=== PATIENT | female | born 1955 | race Caucasian/White ===

== ENCOUNTER 2023-06-30 09:52 | Observation (INO) | payer MEDICARE, BC ==
[2023-06-30 11:14] LABS: #Eosinphils 0.2 thou/uL (0.0-0.7); #Monocytes 0.2 thou/uL (0.11-0.59); #Neutrophils 4.6 thou/uL (1.40-6.50); %Basophils 0.6 % (0.0-1.0); %Eosinophils 2.4 % (0.0-10.0); %Lymphocytes 18.8 % (21.0-51.0); %Monocytes 3.1 % (0.0-10.0); %Neutrophils 74.6 % (42.0-75.0); Hematocrit 36.6 % (36.0-47.0); Hemoglobin 11.8 g/dL (12.0-16.0); Mean Corpuscular HGB CONC 32.2 g/dL (32.0-36.0); Mean Corpuscular Hemoglobin 27.1 pg (27.0-31.0); Mean Corpuscular Volume 83.9 fl (78.0-98.0); Mean Platelet Volume 11.1 fL (7.4-10.4); Platelet Count 300 10x3/uL (130-400); RBC Distribution Width 15.4 % (11.5-14.5); Red Blood Cell (RBC) Count 4.36 mill/uL (4.20-5.40); White Blood Cell (WBC) Count 6.2 10x3/uL (4.8-10.8)
[2023-06-30 11:36] LABS: ALT (SGPT) 34 U/L (8-55); AST (SGOT) 24 U/L (5-34); Albumin 3.8 g/dL (3.4-4.8); Alkaline Phosphatase 47 U/L (40-110); Anion Gap 14 mmol/L (10-20); BUN (Urea Nitrogen) 26 mg/dL (9.8-20.1); Bilirubin, Total 0.5 mg/dL (0.2-1.2); Calc. Creatinine Clearance 0 mL/min (70-130); Calcium 8.5 mg/dL (7.8-10.44); Carbon Dioxide 23 mmol/L (23-31); Chloride 107 mmol/L (98-107); Estimated GFR 55; Glucose 98 mg/dL (80-115); Protein, Total 5.8 g/dL (5.8-8.1); Sodium 141 mmol/L (136-145)
[2023-06-30] MEDS ORDERED: Potassium Chloride 20 MEQ TAB ONE (12:02)
[2023-06-30 12:05] LABS: Troponin I Less than 0.010 ng/mL (< 0.028)
[2023-06-30] MEDS ORDERED: Ondansetron ODT 4 MG TAB PO PRN (12:14)
[2023-06-30] MEDS ORDERED: hydrALAZINE 20 MG/ML VIAL SLOW IVP PRN (12:14)
[2023-06-30] MEDS ORDERED: Acetaminophen 325 MG TAB PO PRN (12:14)
[2023-06-30 15:12] LABS: Bacteria/HPF None Seen HPF (None Seen); Bilirubin Negative (Negative); Blood, Urine Negative (Negative); CAUTI Indications for Culture Pelvic or flank pain; Clarity Clear (Clear); Glucose, Urine (Dipstick) Normal (Negative); Ketone, Urine Negative (Negative); Leukocyte Negative Leu/uL (Negative); Nitrite Negative (Negative); Protein, Urine (Dipstick) Negative (Neg-Trace); RBC/HPF 0-3 HPF (0-3); Specific Gravity, Urine 1.017 (1.002-1.036); Squamous Epithelial 0-3 HPF (0-3); Urobilinogen Normal mg/dL (Less than 2); WBC/HPF 0-3 HPF (0-3); pH, Urine 5.5 (5.0-9.0)
[2023-06-30 15:13] LABS: Urine Culture Reflex No No
[2023-06-30 18:31] VITALS: BMI 40.4
[2023-06-30] MEDS ORDERED: Atorvastatin Calcium 40 MG TAB PO SCH (21:00)
[2023-06-30] MEDS: Apixaban 5 MG TAB PO SCH (21:58)
[2023-06-30] MEDS: Famotidine 20 MG TAB PO SCH (21:59)
[2023-07-01 04:56] LABS: BUN (Urea Nitrogen) 27 mg/dL (9.8-20.1); Calc. Creatinine Clearance 84 mL/min (70-130); Calcium 8.6 mg/dL (7.8-10.44); Carbon Dioxide 26 mmol/L (23-31); Cardiac Risk 3.4 (Less than 4.5); Chloride 108 mmol/L (98-107); Cholesterol 105 mg/dl (< 200 Desired); Estimated GFR 67; Glucose 86 mg/dL (80-115); HDL Cholesterol 31 mg/dL (>60 Neg Risk); LDL Cholesterol, Calculated 47 mg/dL; Potassium 3.3 mmol/L (3.5-5.1); Sodium 142 mmol/L (136-145); Triglycerides 135 mg/dL (Less than 150)
[2023-07-01 05:00] LABS: Anion Gap 11 mmol/L (10-20)
[2023-07-01] MEDS: Dronedarone HCl 400 MG TAB PO SCH ×2 (08:56→17:28)
[2023-07-01] MEDS: Famotidine 20 MG TAB PO SCH (08:56)
[2023-07-01] MEDS: Apixaban 5 MG TAB PO SCH (08:56)
[2023-07-01 16:57] VITALS: BP 138/82; TEMP 98.5
[2023-07-01] MEDS ORDERED: Potassium Chloride 20 MEQ TAB PO SCH (18:30)
[2023-07-01] MEDS ORDERED: Dronedarone HCl 400 MG TAB PO SCH (21:00)
[2023-07-02] MEDS ORDERED: Amlodipine 5 MG TAB PO SCH (09:00)
[2023-07-02] MEDS ORDERED: Gabapentin 100 MG CAP PO SCH (09:00)
[2023-07-02] MEDS ORDERED: Lisinopril 20 MG TAB PO SCH (09:00)
[2023-07-02] MEDS ORDERED: Hydrochlorothiazide 25 MG TAB PO SCH (09:00)
== END 2023-07-01 17:10 | disposition home or self-care (01) ==
LOC: ERS 09:52 → ERHOLD 12:13 → 2SE 18:01
PROVIDERS: ADMIT Hospitalist; ATTEND Hospitalist
DX: R55 Syncope and collapse (principal); I48.91 Unspecified atrial fibrillation; I10 Essential (primary) hypertension; F17.210 Nicotine dependence, cigarettes, uncomplicated; E87.6 Hypokalemia; R06.4 Hyperventilation; R41.82 Altered mental status, unspecified; Z90.49 Acquired absence of other specified parts of digestive tract; Z90.710 Acquired absence of both cervix and uterus; Z79.01 Long term (current) use of anticoagulants; Z79.899 Other long term (current) drug therapy; Z95.3 Presence of xenogenic heart valve; Z86.73 Personal history of transient ischemic attack (TIA), and cerebral infarction without residual deficits
CPT/HCPCS: 70450; 70551; 70552; 80048; 80053; 80061; 81001; 84484; 85025; 93005; 93306; 95712; 95819; 95957; 99285; G0378 ×3; 36415